=== PATIENT | female | born 2000 | race Caucasian/White ===

== ENCOUNTER 2020-01-27 23:08 | Emergency (ER) | payer OTHER, SELFPAY ==
[2020-01-27 23:19] VITALS: BP 128/87; PULSE 76; RESP 14; TEMP 36.6; O2SAT 99
[2020-01-27 23:56] LABS: Add Urine Microscopic? YES; Appearance Urine Cloudy (Clear); Bacteria Urine Trace /hpf; Bilirubin Urine Negative (Negative); Blood Urine 2+ (Negative); Color Urine Yellow (Yellow); Glucose Urine UA Negative (Negative); Ketones Urine Negative (Negative); Leukocyte Esterase Ur 3+ LEU/UL (Negative); Nitrate Urine Negative (Negative); Protein Urine Negative (Negative); Specific Grav Ur 1.005 (1.001-1.035); Squamous Epithelial Cell Urine Rare /hpf (Few); Urobilinogen Urine Negative mg/dL (<2.0); WBC Clumps Urine Present /HPF; WBC Urine >75 /hpf
--- NOTE | 2020-01-28 00:04 | ED.FEMALEGU ---
HPI - Female Genitourinary General Chief complaint: Urogenital-Female Stated complaint: UTI Time Seen by Provider: 01/27/20 23:26 Source: patient Mode of arrival: ambulatory Limitations: no limitations History of Present Illness HPI Narrative: Patient is 19-year-old female who presents to the emergency department with complaint of suspected UTI. Patient reports onset of symptoms about 4 to 5 days ago. Patient reports dysuria and urinary frequency. She denies any significant abdominal pain, back pain, fever, nausea, vomiting, or any other issues at this time. Patient had been taking Azo which was causing a little bit of nausea, which subsided when she stopped taking that medication. Patient has prior history of UTI and states this feels similar. MD elicited complaint: UTI Onset (ago): day(s) Severity: similar to previous episodes Urinary symptoms: Dysuria and Frequency Treatment prior to arrival: OTC urinary analgesics Related Data Home Medications Medication Instructions Recorded Confirmed No Home Medications 01/27/20 Allergies Allergy/AdvReac Type Severity Reaction Status Date / Time No Known Allergies Allergy Verified 01/27/20 23:22 Review of Systems Review of Systems: All systems reviewed & are unremarkable except as noted in HPI and below PMFSH Past Medical History Medical History (Updated 01/28/20 @ 00:13 by Denice Kim MD) UTI (urinary tract infection) Social History Social History (Updated 01/28/20 @ 00:06 by Denice Kim MD) Smoking status: Never smoker Exam Const: General: cooperative, no acute distress and alert Nutritional Appearance: well nourished Orientation/consciousness: patient oriented x3 Limitations: no limitations Resp: Effort & Inspection: normal respiratory effort Auscultation: clear to auscultation bilaterally Cardio: Rate: regular rate Rhythm: regular rhythm GI: GI Palp: Yes Soft to palpation and No Tenderness to palpation present (GI) Auscultation: normal bowel sounds Skin: General skin exam: normal color Neuro: General: patient oriented x3 Cognition (Neuro): normal cognition Speech: normal speech Extrem: General: normal to inspection, full ROM and no clubbing, cyanosis or edema Psych: Mental Status: mental status grossly normal Affect: normal affect Attitude: cooperative Course Course Emergency Course: Patient with findings of UTI on urinalysis which is consistent with her symptoms. Will prescribe antibiotics. Advised primary care follow-up. Vital Signs Vital signs: Vital Signs Temperature 97.8 F 01/27/20 23:19 Pulse Rate 76 01/27/20 23:19 Respiratory Rate 14 01/27/20 23:19 Blood Pressure 128/87 01/27/20 23:19 Pulse Oximetry 99 01/27/20 23:19 Temperature 97.8 F 01/27/20 23:19 Pulse Rate 76 01/27/20 23:19 Respiratory Rate 14 01/27/20 23:19 Blood Pressure 128/87 01/27/20 23:19 Pulse Oximetry 99 01/27/20 23:19 MDM - Female Genitourinary Lab Data Attestation: I reviewed the patient's lab results. Labs: Lab Results 01/27/20 Range/Units 23:34 Urine Color Yellow (Yellow) Urine Appearance Cloudy H (Clear) Urine pH 7.0 (5.0-9.0) Ur Specific [place] 1.005 (1.001-1.035) Urine Protein Negative (Negative) mg/dL Urine Glucose (UA) Negative (Negative) mg/dL Urine Ketones Negative (Negative) mg/dL Ur Blood (Man) 2+ H (Negative) Urine Nitrate Negative (Negative) Urine Bilirubin Negative (Negative) Urine Urobilinogen Negative (<2.0) mg/dL Leukocyte Esterase Rfl 3+ H (Negative) CONSUELO/UL Urine RBC 11-20 H (0-2) /hpf Urine WBC >75 H /hpf Urine WBC Clumps Present H (None) /HPF Ur Squamous Epith Cells Rare (Few) /hpf Urine Bacteria Trace /hpf UCG Bedside Result Negative Reference Range: Negative Discharge Plan Discharge Clinical Impression: Urinary tract infection Qualifiers: Urinary tract infection type:
[2020-01-28 00:19] VITALS: BP 132/79; PULSE 82; RESP 18; O2SAT 98
[2020-01-28] MEDS: CEPHALEXIN 500 MG CAPSULE PO (00:19)
== END 2020-01-28 00:20 | disposition home or self-care (01) ==
PROVIDERS: Emergency Provider Emergency Medicine; PCP Internal Medicine
DX: N30.00 Acute cystitis without hematuria (principal)
CPT/HCPCS: 81001; 81025; 87077; 87086; 87088; 87186; 99283; A9270